=== PATIENT | male | born 1990 | race Two or more races ===

== ENCOUNTER 2017-12-04 13:05 | Emergency (ER) | payer OTHER ==
[~2017-12-04] VITALS: Ht 167.6 cm; Wt 78.0 kg
[2017-12-04 13:29] VITALS: Ht 167.6 cm; Wt 78.0 kg
[2017-12-04 15:25] VITALS: BP 134/76
== END 2017-12-04 15:25 | disposition home or self-care (01) ==
LOC: ED 13:05
DX: S62.002A Unspecified fracture of navicular [scaphoid] bone of left wrist, initial encounter for closed fracture (principal); Z88.0 Allergy status to penicillin; X58.XXXA Exposure to other specified factors, initial encounter; Y93.A9 Activity, other involving cardiorespiratory exercise; Y92.89 Other specified places as the place of occurrence of the external cause; Y99.8 Other external cause status